=== PATIENT | female | born 1985 | race American Indian/Alaskan Native ===

== ENCOUNTER 2017-04-27 08:28 | Outpatient (CLI) | payer SELFPAY ==
[2017-04-27 09:05] LABS: Urine Drugs of Abuse Note Disclamer
[2017-04-27 09:29] LABS: Bacteria,Urine 1+ /HPF (Negative); Bilirubin,Urine NEG (Negative); Blood,Urine NEG (Negative); Ketones,Urine NEG (Negative); Leukocyte Esterase,Urine MOD (Negative); Mucus,Urine 1+ /HPF; Nitrite,Urine POS (Negative); Protein,Urine <15 mg/dL mg/dL (Negative); Urobilinogen,Urine < 2.0 mg/dL (<2.0)
[2017-04-27 10:21] VITALS: BP 108/63
--- NOTE | 2017-04-27 13:48 | Ultrasound Report ---
OB ULTRASOUND History vaginal bleeding during . Technique: Transabdominal ultrasound with Doppler interrogation. Gestation: Single Position: Breech Amniotic Fluid: Normal BAY = 16.0 cm Placenta: Anterior Placental Grade: 1 Heart Rate: 147 BPM Cervical length: 4.4 cm (Normal > 3 cm) NEUROANATOMY VISUALIZED: Choroid Plexus Cisterna Magnum Cerebellum Lateral Ventricle ANATOMY VISUALIZED: Stomach Kidneys Bladder Diaphragm 4 Chamber Heart Heart 3 Vessel Cord Abd. Cord Insert SPINE VISUALIZED: Longitudinal Transverse BPD: 6.7 cm = 26 w 6 d HC: 24.9 cm = 27 w 0 d AC: 20.7 cm = 25 w 2 d FL: 5.1 cm = 27 w 1 d HC/AC Ratio: 1.2 Cephalic Index: 76.1 Estimated Weight: 908 grams Clinical age = 27 w 0 d EDC: 07/27/17 US Gest. Age = 26 w 4 d EDC: 07/30/17 IMPRESSION: Viable, single intrauterine as described.
== END 2017-04-27 11:34 | disposition home or self-care (01) ==
LOC: TRG 08:28
PROVIDERS: ATTEND Obstetrics & Gynecology
DX: O32.1XX0 Maternal care for breech presentation, not applicable or unspecified (principal); O47.02 False labor before 37 completed weeks of gestation, second trimester; Z3A.27 27 weeks gestation of pregnancy
CPT/HCPCS: 59025; 76805; 80307; 81001

== ENCOUNTER 2017-07-05 13:58 | Outpatient (CLI) | payer SELFPAY ==
[2017-07-05 16:33] LABS: Alanine Aminotransferase 12 units/L (7-56); Albumin 3.8 g/dL (3.9-5)
[2017-07-05 16:57] LABS: Bilirubin,Direct < 0.2 mg/dL (0-0.2)
== END 2017-07-05 15:36 | disposition home or self-care (01) ==
LOC: TRG 13:58
PROVIDERS: ATTEND Obstetrics & Gynecology
DX: O47.03 False labor before 37 completed weeks of gestation, third trimester (principal); Z3A.36 36 weeks gestation of pregnancy
CPT/HCPCS: 59025; 80074

== ENCOUNTER 2017-07-24 22:14 | Outpatient (CLI) | payer OTHER ==
[2017-07-24 22:38] VITALS: BP 120/76
== END 2017-07-24 23:28 | disposition home or self-care (01) ==
LOC: TRG 22:14
PROVIDERS: ATTEND Obstetrics & Gynecology
DX: O42.92 Full-term premature rupture of membranes, unspecified as to length of time between rupture and onset of labor (principal); Z3A.39 39 weeks gestation of pregnancy
CPT/HCPCS: 59025

== ENCOUNTER 2017-08-05 16:41 | Inpatient (IN) | payer MEDICAID ==
--- NOTE | 2017-08-05 20:08 | Ultrasound Report ---
FINAL REPORT PROCEDURE: Ultrasound biophysical profile without nonstress test. TECHNIQUE: Sonographic evaluation for breathing, movement, tone, and amniotic fluid volume was performed. CPT 08376 HISTORY: Post dates, decreased movement, evaluate well-being. COMPARISON: No prior studies are available for comparison. FINDINGS: Amniotic fluid volume: 2. breathin. movement: 2. tone: 2. Score: 8 of 8. The fetus is in breech presentation. Cardiac activity is documented at 150 beats per minute. IMPRESSION: Normal biophysical profile.
[2017-08-05] MEDS ORDERED: POLYCILLIN/NS 2 GM/100 ML 2 GM/100 ML BAG IV ONE (20:46)
[2017-08-05] MEDS ORDERED: ePHEDrine SULFATE IV PRN (20:46)
[2017-08-05] MEDS ORDERED: BRETHINE SUB-Q PRN (20:46)
[2017-08-05] MEDS ORDERED: BRETHINE IVP PRN (20:46)
[2017-08-05] MEDS ORDERED: MINERAL OIL PO PRN (20:46)
[2017-08-05] MEDS ORDERED: XYLOCAINE 2% INFILTRATI ONE (20:46)
[2017-08-05] MEDS ORDERED: CERVIDIL VG ONE (20:46)
--- NOTE | 2017-08-05 20:56 | History and Physical Report ---
History of Present Illness Date of examination: 08/05/17 Chief complaint: postterm, history of macrosomia, no PNC History of present illness: Patient states she had PNC in [place], however she had not had any care since moving to [place]. course uncomplicated. EDC 07/27/17 based on US performed here at 27 weeks. No care records available. She presents tonight c/o NICHOLAS and decreased movement. BPP 10/10 with polyhydramnios. Will proceed with induction for post term with history of macrosomia and 42weeks Past History Past Medical History: no pertinent history Past Surgical History: no surgical history [employer] History: abnormal PAP smear. denies: chlamydia, gonorrhea, hepatitis C, herpes, HIV, syphilis, trichomonas Social history: no significant social history - Obstetrical History Expected Date of Delivery: 07/27/17 Actual Gestation: 41 Week(s) 2 Day(s) : 3 Hx # Term Pregnancies: 1 Spontaneous Abortions: 1 Number of Living Children: 1 #1 Infant Gender: Female year: Birthweight: 4.309 kg Method of Delivery: Vaginal Gestational age at delivery: 42 Complications: none (she refused induction earlier in the b/c she was scared to be induced) Medications and Allergies Allergies Allergy/AdvReac Type Severity Reaction Status Date / Time No Known Allergies Allergy Unverified 04/27/17 08:36 Home Medications Medication Instructions Recorded Confirmed Last Taken Type Vit Calc,Iron,Folic 1 tab PO DAILY 04/27/17 08/05/17 07/24/17 History [ Vitamins] Active Meds: Active Medications Dinoprostone (Cervidil) 10 mg VG ONCE ONE Stop: 08/05/17 20:47 Ephedrine Sulfate (Ephedrine Sulfate) 10 mg IV Q2M PRN PRN Reason: Hypotension Ampicillin Sodium (Polycillin/Ns 2 Gm/100 Ml) 2 gm in 100 mls @ 100 mls/hr IV ONCE ONE; Protocol Stop: 08/05/17 21:45 Ampicillin Sodium (Ampicillin/Ns 1 Gm/50 Ml) 1 gm in 50 mls @ 100 mls/hr IV Q4HR LUCIE; Protocol Parenteral Electrolytes (Normosol-R Ph 7.4) 1,000 mls @ 125 mls/hr IV DIRECT LUCIE Oxytocin/Sodium Chloride (Pitocin/Ns 20 Unit/1000ml Drip) 20 units in 1,000 mls @ 125 mls/hr IV DIRECT LUCIE Lidocaine (Xylocaine 2%) 20 ml INFILTRATI ONCE ONE Stop: 08/05/17 20:47 Mineral Oil (Mineral Oil) 30 ml PO QHS PRN PRN Reason: Constipation Terbutaline Sulfate (Brethine) 0.25 mg SUB-Q ONCE PRN PRN Reason: Hyperstimulation/Hypertonicity Terbutaline Sulfate (Brethine) 0.25 mg IVP ONCE PRN PRN Reason: Hyperstimulation/Hypertonicity - Vital Signs Vital signs: Vital Signs Pulse BP 94 H 123/79 08/05/17 17:13 08/05/17 17:13 Temp Pulse Resp BP Pulse Ox 78 118/70 08/05/17 20:20 08/05/17 20:20 - Physical Exam Breasts: Positive: deferred Cardiovascular: Regular rate Lungs: Positive: Clear to auscultation Abdomen: Positive: normal appearance - Obstetrical FHR: category 1 Uterine Contraction Monitor Mode: External Cervical Dilatation: 0.5 (per RN) Cervical Effacement Percentage: 50 station: -3 cephalic by US Uterine Contraction Pattern: Absent Results All other labs normal. Ultrasound: report reviewed Assessment and Plan - Patient Problems (1) 41 weeks gestation of Current Visit: Yes Status: Acute Plan to address problem: Will proceed with induction, questions answered, she voiced understanding and agrees with plan of care (2) No care in current Current Visit: Yes Status: Acute (3) History of macrosomia in in prior , currently Current Visit: Yes Status: Acute
[2017-08-05] MEDS ORDERED: PITOCin/NS 20 UNIT/1000ML DRIP 20 UNITS/1,000 ML BAG IV SCH (21:00)
--- NOTE | 2017-08-05 21:48 | Ultrasound Report ---
FINAL REPORT PROCEDURE: Limited obstetrical ultrasound. TECHNIQUE: Imaging was done to determine the amniotic fluid index. HISTORY: Post dates, well-being, decreased movement. COMPARISON: No prior studies are available for comparison. FINDINGS: The amniotic fluid index measures 24.5 centimeters. The heart rate is documented at 150 beats per minute. IMPRESSION: 24.5 centimeter amniotic fluid index.
[2017-08-05] MEDS: NORMOSOL-R PH 7.4 1,000 ML IV SCH (21:57)
[2017-08-06] MEDS: NORMOSOL-R PH 7.4 1,000 ML IV SCH ×2 (00:33→13:46)
--- NOTE | 2017-08-06 07:52 | Progress Note ---
Assessment and Plan patient resting w/o complaints. pt reports NICHOLAS has resolved and denies hx of headaches or migraines. VSSAF. SVE ft/thick/oop. Cervidil to be removed @ 1000, if CAT 1 tracing pt may shower and ambulate until lunch. Pitocin to be started @ 1200. Plan reviewed with pt and rn. All questions addressed. city secretary will attempt to get records from OB provider in [place]. Pt states she has been in the [place] area x 1 month but had regular care prior to moving. - Patient Problems (1) 41 weeks gestation of Current Visit: Yes Status: Acute (2) History of macrosomia in infant in prior , currently Current Visit: Yes Status: Acute Subjective - Subjective Date of service: 08/06/17 Principal diagnosis: IUP @ 41+3, limited care Patient reports: no new complaints Objective - Vital Signs Vital Signs: Vital Signs - 12hr 08/05/17 08/06/17 20:20 02:12 Pulse Rate 78 79 Blood Pressure 118/70 101/58 - Exam Breasts: normal Cardiovascular: Regular rate Lungs: Clear to auscultation, Normal air movement Abdomen: Present: normal appearance, soft Uterus: Present: normal FHR: auscultation normal, category 2 Uterine Contraction Monitor Mode: External Cervical Dilatation: 0.5 Cervical Effacement Percentage: 30 (firm) station: -3 Uterine Contraction Pattern: Irregular Uterine Tone Measurement Phase: Resting Extremities: normal Deep Tendon Reflex Grade: Normal +2 - Labs Labs: Laboratory Results - last 24 hr 08/05/17 21:05 Blood Type A POSITIVE Antibody Screen Negative
[2017-08-06 08:13] LABS: Rubella IgG Antibody Immune (Immune)
--- NOTE | 2017-08-06 08:35 | Event Note ---
Date: 08/06/17 (presentation) preliminary u/s report has cephalic presentation noted. radiology report says breech and images of u/s have transverse head maternal left noted. stat repeat u /s for confirmation of presentation ordered. unable to feel presenting part during SVE.
--- NOTE | 2017-08-06 09:13 | Ultrasound Report ---
LIMITED OB ULTRASOUND: Presentation. Gestation: Michael Position: Cephalic Heart Rate: 141 BPM
--- NOTE | 2017-08-06 10:17 | Progress Note ---
Assessment and Plan - Patient Problems (1) 41 weeks gestation of Current Visit: Yes Status: Acute (2) History of macrosomia in in prior , currently Current Visit: Yes Status: Acute (3) No care in current Current Visit: Yes Status: Acute Qualifiers: Trimester: third trimester Qualified Code(s): O09.33 - Supervision of with insufficient care, third trimester Plan to address problem: will con't IOL at this time. Allow pericare and for pt to eat and then proceed with pitocin at this time. Subjective - Subjective Date of service: 08/06/17 Principal diagnosis: IUP @ 41+3, limited care Interval history: Pt doing well. Pain is well controlled at this time. Pt vtx by sono this am and feels vtx by my exam but presenting part is very high. Patient reports: no new complaints Objective - Vital Signs Vital Signs: Vital Signs - 12hr 08/06/17 02:12 Pulse Rate 79 Blood Pressure 101/58 - Exam FHR: category 1 Cervical Dilatation: 1.5 Cervical Effacement Percentage: 50 station: -3 - Labs Labs: Laboratory Results - last 24 hr 08/05/17 08/06/17 08/06/17 21:05 07:17 07:17 Sickle Cell Screen Negative HIV 1&2 Antibody Rapid HIV P24 Antigen Rubella IgG Antibody Immune Blood Type A POSITIVE Antibody Screen Negative 08/06/17 07:17 Sickle Cell Screen HIV 1&2 Antibody Rapid Non react HIV P24 Antigen Non react Rubella IgG Antibody Blood Type Antibody Screen
[2017-08-06 11:25] LABS: Hepatitis C Virus Antibody Non-Reactive (NonReactive)
[2017-08-06] MEDS: PITOCin/NS 30 UNIT/500ML 30 UNITS/500 ML BAG IV SCH ×6 (12:30→15:41)
[2017-08-06 17:43] LABS: Amphetamine Screen,Urine PRESUMPTIVE NEGATIVE; Benzodiazepines Screen,Urine PRESUMPTIVE NEGATIVE; Cannabinoid Screen,Urine PRESUMPTIVE NEGATIVE; Cocaine Screen,Urine PRESUMPTIVE NEGATIVE; Methadone Screen,Urine PRESUMPTIVE NEGATIVE; Opiate Screen,Urine PRESUMPTIVE NEGATIVE
--- NOTE | 2017-08-06 17:54 | Progress Note ---
Assessment and Plan no change in SVE since last exam, pitocin infusing @ 24mU with regular ctx. Plan discussed to d/c pitocin, allow dinner and ambulation with cat [address] repeat cervidil tonight for additional cervical ripening. patient denies needing pain medication at this time. All questions addressed, patient verbalized understanding. Dr. Ram aware of status and plan of care. - Patient Problems (1) 41 weeks gestation of Current Visit: Yes Status: Acute (2) History of macrosomia in in prior , currently Current Visit: Yes Status: Acute (3) No care in current Current Visit: Yes Status: Acute Qualifiers: Trimester: third trimester Qualified Code(s): O09.33 - Supervision of with insufficient care, third trimester Subjective - Subjective Date of service: 08/06/17 Principal diagnosis: IUP @ 41+3, no care Patient reports: new complaints (back pain), movement normal, no loss of fluid, no vaginal bleeding Objective - Vital Signs Vital Signs: Vital Signs - 12hr 08/06/17 08/06/17 08/06/17 12:15 12:25 12:26 Temperature 99.0 F Pulse Rate 87 96 H Respiratory 18 Rate Blood Pressure 110/70 O2 Sat by Pulse 100 Oximetry 08/06/17 08/06/17 08/06/17 12:31 12:36 12:40 Temperature Pulse Rate 91 H 83 90 Respiratory Rate Blood Pressure 107/67 O2 Sat by Pulse 98 98 Oximetry 08/06/17 08/06/17 08/06/17 12:41 12:46 12:51 Temperature Pulse Rate 101 H 95 H 99 H Respiratory Rate Blood Pressure O2 Sat by Pulse 98 99 99 Oximetry 08/06/17 08/06/17 08/06/17 12:56 12:59 13:01 Temperature Pulse Rate 94 H 99 H 88 Respiratory Rate Blood Pressure 130/75 O2 Sat by Pulse 98 84 100 Oximetry 08/06/17 08/06/17 08/06/17 13:06 13:08 13:11 Temperature Pulse Rate 94 H 89 104 H Respiratory Rate Blood Pressure 128/71 O2 Sat by Pulse 99 90 100 Oximetry 08/06/17 08/06/17 08/06/17 13:16 13:21 13:25 Temperature Pulse Rate 97 H 90 90 Respiratory Rate Blood Pressure 117/70 O2 Sat by Pulse 99 99 Oximetry 08/06/17 08/06/17 08/06/17 13:26 13:31 13:36 Temperature Pulse Rate 85 85 81 Respiratory Rate Blood Pressure O2 Sat by Pulse 98 99 98 Oximetry 08/06/17 08/06/17 08/06/17 13:41 13:46 13:51 Temperature Pulse Rate 88 89 83 Respiratory Rate Blood Pressure 113/70 O2 Sat by Pulse 98 100 98 Oximetry 08/06/17 08/06/17 08/06/17 13:54 13:56 14:01 Temperature Pulse Rate 89 86 83 Respiratory Rate Blood Pressure 117/70 O2 Sat by Pulse 99 100 Oximetry 08/06/17 08/06/17 08/06/17 14:06 14:10 14:11 Temperature Pulse Rate 86 98 H 86 Respiratory Rate Blood Pressure 105/76 O2 Sat by Pulse 99 99 Oximetry 08/06/17 08/06/17 08/06/17 14:16 14:21 14:25 Temperature Pulse Rate 87 88 86 Respiratory Rate Blood Pressure 121/78 O2 Sat by Pulse 99 99 Oximetry 08/06/17 08/06/17 08/06/17 14:26 14:31 14:41 Temperature Pulse Rate 95 H 81 83 Respiratory Rate Blood Pressure 115/70 O2 Sat by Pulse 99 97 Oximetry 08/06/17 08/06/17 08/06/17 14:54 15:10 15:25 Temperature Pulse Rate 92 H 86 85 Respiratory Rate Blood Pressure 112/71 119/73 121/79 O2 Sat by Pulse Oximetry 08/06/17 08/06/17 08/06/17 15:39 15:54 16:10 Temperature Pulse Rate 88 87 82 Respiratory Rate Blood Pressure 111/73 115/73 116/73 O2 Sat by Pulse Oximetry 08/06/17 08/06/17 08/06/17 16:25 16:40 17:09 Temperature Pulse Rate 88 83 75 Respiratory Rate Blood Pressure 113/71 118/70 114/67 O2 Sat by Pulse Oximetry 08/06/17 08/06/17 17:25 17:41 Temperature Pulse Rate 76 75 Respiratory Rate Blood Pressure 117/77 119/69 O2 Sat by Pulse Oximetry - Exam Breasts: normal Cardiovascular: Regular rate Lungs: Clear to auscultation, Normal air movement Abdomen: Present: normal appearance, soft Vulva: both: normal Uterus: Present: normal FHR: auscultation normal, category 1 Uterine Contraction Monitor Mode: External Cervical Dilatation: 1.5 (posterior, head balotable) Cervical Effacement Percentage: 50 station: -3 Uterine Contraction Frequency (min): 2-4 Uterine Contraction Duration: 60 Uterine Contraction Pattern: Regular Uterine Tone Measurement Phase: Contraction Uterine Contraction Intensity: Moderate Extremities: normal Deep Tendon Reflex Grade: Normal +2 - Labs Labs: Laboratory Results - last 24 hr 08/05/17 08/05/17 08/06/17 21:05 21:05 07:17 Sickle Cell Screen Negative Urine Opiates Screen Urine Methadone Screen Ur Barbiturates Screen Ur Phencyclidine Scrn Ur Amphetamines Screen U Benzodiazepines Scrn Urine Cocaine Screen U Marijuana (THC) Screen Drugs of Abuse Note RPR Nonreactive Hep Bs Antigen Hepatitis C Antibody HIV 1&2 Antibody Rapid HIV P24 Antigen Rubella IgG Antibody Blood Type A POSITIVE Antibody Screen Negative 08/06/17 08/06/17 08/06/17 07:17 07:17 07:17 Sickle Cell Screen Urine Opiates Screen Urine Methadone Screen Ur Barbiturates Screen Ur Phencyclidine Scrn Ur Amphetamines Screen U Benzodiazepines Scrn Urine Cocaine Screen U Marijuana (THC) Screen Drugs of Abuse Note RPR Hep Bs Antigen Non-reactive Hepatitis C Antibody Non-reactive HIV 1&2 Antibody Rapid Non react HIV P24 Antigen Non react Rubella IgG Antibody Immune Blood Type Antibody Screen 08/06/17 Unknown Sickle Cell Screen Urine Opiates Screen Presumptive negative Urine Methadone Screen Presumptive negative Ur Barbiturates Screen Presumptive negative Ur Phencyclidine Scrn Presumptive negative Ur Amphetamines Screen Presumptive negative U Benzodiazepines Scrn Presumptive negative Urine Cocaine Screen Presumptive negative U Marijuana (THC) Screen Presumptive negative Drugs of Abuse Note Disclamer RPR Hep Bs Antigen Hepatitis C Antibody HIV 1&2 Antibody Rapid HIV P24 Antigen Rubella IgG Antibody Blood Type Antibody Screen
[2017-08-06] MEDS ORDERED: AMBIEN PO PRN (18:57)
[2017-08-06] MEDS ORDERED: CERVIDIL VG ONE (20:30)
--- NOTE | 2017-08-07 08:30 | Progress Note ---
Assessment and Plan - Patient Problems (1) 41 weeks gestation of Current Visit: Yes Status: Acute Plan to address problem: Once cephalic presentation confirmed will proceed with pitocin (2) No care in current Current Visit: Yes Status: Acute Qualifiers: Trimester: third trimester Qualified Code(s): O09.33 - Supervision of with insufficient care, third trimester (3) History of macrosomia in infant in prior , currently Current Visit: Yes Status: Acute Subjective - Subjective Date of service: 08/07/17 Principal diagnosis: IUP @ 41+4, no care Patient reports: new complaints (back pain), movement normal, no loss of fluid, no vaginal bleeding Objective - Vital Signs Vital Signs: Vital Signs - 12hr 08/06/17 08/06/17 08/06/17 20:41 20:45 20:48 Temperature 99.1 F Pulse Rate 95 H 100 H 98 H Respiratory 18 Rate Blood Pressure 124/76 Blood Pressure 124/76 [Left] O2 Sat by Pulse 98 98 Oximetry 08/06/17 08/06/17 08/06/17 20:50 20:55 21:00 Temperature Pulse Rate 95 H 99 H 101 H Respiratory Rate Blood Pressure Blood Pressure [Left] O2 Sat by Pulse 97 98 98 Oximetry 08/06/17 08/06/17 08/06/17 21:05 21:10 21:15 Temperature Pulse Rate 98 H 94 H 102 H Respiratory Rate Blood Pressure Blood Pressure [Left] O2 Sat by Pulse 98 98 99 Oximetry 08/06/17 08/06/17 08/06/17 21:20 21:25 21:30 Temperature Pulse Rate 90 103 H 89 Respiratory Rate Blood Pressure Blood Pressure [Left] O2 Sat by Pulse 97 98 98 Oximetry 08/06/17 08/06/17 08/06/17 21:35 21:40 21:45 Temperature Pulse Rate 95 H 93 H 91 H Respiratory Rate Blood Pressure Blood Pressure [Left] O2 Sat by Pulse 99 99 99 Oximetry 08/06/17 08/06/17 08/06/17 21:50 21:55 22:00 Temperature Pulse Rate 81 90 87 Respiratory Rate Blood Pressure Blood Pressure [Left] O2 Sat by Pulse 99 99 99 Oximetry 08/06/17 08/06/17 08/06/17 22:05 22:10 22:15 Temperature Pulse Rate 80 82 86 Respiratory Rate Blood Pressure Blood Pressure [Left] O2 Sat by Pulse 99 100 99 Oximetry 08/06/17 08/06/17 08/06/17 22:20 22:25 22:30 Temperature Pulse Rate 75 75 84 Respiratory Rate Blood Pressure Blood Pressure [Left] O2 Sat by Pulse 99 99 99 Oximetry 08/06/17 08/06/17 08/06/17 22:35 22:40 22:45 Temperature Pulse Rate 86 82 77 Respiratory Rate Blood Pressure Blood Pressure [Left] O2 Sat by Pulse 99 99 98 Oximetry 08/06/17 08/06/17 08/06/17 22:50 22:55 23:00 Temperature Pulse Rate 93 H 77 78 Respiratory Rate Blood Pressure Blood Pressure [Left] O2 Sat by Pulse 98 99 100 Oximetry 08/06/17 08/06/17 08/06/17 23:05 23:10 23:15 Temperature Pulse Rate 77 97 H 96 H Respiratory Rate Blood Pressure Blood Pressure [Left] O2 Sat by Pulse 100 99 99 Oximetry 08/06/17 08/06/17 08/06/17 23:20 23:25 23:30 Temperature Pulse Rate 90 79 84 Respiratory Rate Blood Pressure Blood Pressure [Left] O2 Sat by Pulse 99 98 99 Oximetry 08/06/17 08/06/17 08/06/17 23:35 23:40 23:43 Temperature Pulse Rate 84 88 89 Respiratory Rate Blood Pressure Blood Pressure [Left] O2 Sat by Pulse 99 97 89 Oximetry 08/07/17 08/07/17 08/07/17 01:11 01:16 01:21 Temperature Pulse Rate 85 93 H 97 H Respiratory Rate Blood Pressure Blood Pressure [Left] O2 Sat by Pulse 95 96 96 Oximetry 08/07/17 08/07/17 08/07/17 01:26 01:31 01:36 Temperature Pulse Rate 97 H 104 H 99 H Respiratory Rate Blood Pressure Blood Pressure [Left] O2 Sat by Pulse 96 96 96 Oximetry 08/07/17 08/07/17 08/07/17 01:41 01:46 01:51 Temperature Pulse Rate 101 H 95 H 95 H Respiratory Rate Blood Pressure Blood Pressure [Left] O2 Sat by Pulse 96 96 97 Oximetry 08/07/17 08/07/17 08/07/17 01:56 02:01 02:06 Temperature Pulse Rate 93 H 95 H 98 H Respiratory Rate Blood Pressure Blood Pressure [Left] O2 Sat by Pulse 97 97 97 Oximetry 08/07/17 08/07/17 08/07/17 02:11 02:16 02:21 Temperature Pulse Rate 94 H 90 102 H Respiratory Rate Blood Pressure Blood Pressure [Left] O2 Sat by Pulse 97 96 97 Oximetry 08/07/17 08/07/17 08/07/17 02:26 02:31 02:36 Temperature Pulse Rate 95 H 94 H 96 H Respiratory Rate Blood Pressure Blood Pressure [Left] O2 Sat by Pulse 97 97 97 Oximetry 08/07/17 08/07/17 08/07/17 02:41 02:46 02:51 Temperature Pulse Rate 101 H 98 H 98 H Respiratory Rate Blood Pressure Blood Pressure [Left] O2 Sat by Pulse 97 97 97 Oximetry 08/07/17 08/07/17 08/07/17 02:56 03:01 03:06 Temperature Pulse Rate 97 H 98 H 82 Respiratory Rate Blood Pressure Blood Pressure [Left] O2 Sat by Pulse 97 96 96 Oximetry 08/07/17 08/07/17 08/07/17 03:11 03:12 03:16 Temperature Pulse Rate 96 H 104 H 92 H Respiratory Rate Blood Pressure Blood Pressure [Left] O2 Sat by Pulse 96 93 95 Oximetry 08/07/17 08/07/17 08/07/17 03:18 03:21 03:24 Temperature Pulse Rate 99 H 91 H 93 H Respiratory Rate Blood Pressure Blood Pressure [Left] O2 Sat by Pulse 94 95 94 Oximetry 08/07/17 08/07/17 08/07/17 03:26 03:31 03:36 Temperature Pulse Rate 93 H 99 H 86 Respiratory Rate Blood Pressure Blood Pressure [Left] O2 Sat by Pulse 94 96 94 Oximetry 08/07/17 08/07/17 08/07/17 03:41 03:47 03:51 Temperature Pulse Rate 93 H 88 90 Respiratory Rate Blood Pressure Blood Pressure [Left] O2 Sat by Pulse 94 94 94 Oximetry 08/07/17 08/07/17 08/07/17 03:56 03:59 04:01 Temperature Pulse Rate 94 H 93 H 93 H Respiratory Rate Blood Pressure Blood Pressure [Left] O2 Sat by Pulse 94 94 94 Oximetry 08/07/17 08/07/17 08/07/17 04:07 04:11 04:14 Temperature Pulse Rate 93 H 94 H 92 H Respiratory Rate Blood Pressure Blood Pressure [Left] O2 Sat by Pulse 94 94 94 Oximetry 08/07/17 08/07/17 08/07/17 04:16 04:22 04:27 Temperature Pulse Rate 92 H 91 H 91 H Respiratory Rate Blood Pressure Blood Pressure [Left] O2 Sat by Pulse 95 94 95 Oximetry 08/07/17 08/07/17 08/07/17 04:28 04:32 04:36 Temperature Pulse Rate 88 96 H 92 H Respiratory Rate Blood Pressure Blood Pressure [Left] O2 Sat by Pulse 94 94 97 Oximetry 08/07/17 08/07/17 08/07/17 04:38 04:41 04:44 Temperature Pulse Rate 84 86 83 Respiratory Rate Blood Pressure Blood Pressure [Left] O2 Sat by Pulse 94 94 94 Oximetry 08/07/17 08/07/17 08/07/17 04:47 04:52 04:56 Temperature Pulse Rate 84 89 86 Respiratory Rate Blood Pressure Blood Pressure [Left] O2 Sat by Pulse 94 94 94 Oximetry 08/07/17 08/07/17 08/07/17 04:58 05:02 05:07 Temperature Pulse Rate 91 H 86 89 Respiratory Rate Blood Pressure Blood Pressure [Left] O2 Sat by Pulse 94 97 97 Oximetry 08/07/17 08/07/17 08/07/17 05:12 05:17 05:22 Temperature Pulse Rate 98 H 90 102 H Respiratory Rate Blood Pressure Blood Pressure [Left] O2 Sat by Pulse 96 95 96 Oximetry 08/07/17 08/07/17 08/07/17 05:27 05:32 05:37 Temperature Pulse Rate 103 H 95 H 93 H Respiratory Rate Blood Pressure Blood Pressure [Left] O2 Sat by Pulse 96 96 96 Oximetry 08/07/17 08/07/17 08/07/17 05:41 05:42 05:47 Temperature Pulse Rate 78 80 86 Respiratory Rate Blood Pressure Blood Pressure [Left] O2 Sat by Pulse 94 94 94 Oximetry 08/07/17 08/07/17 08/07/17 05:48 05:52 05:57 Temperature Pulse Rate 86 89 85 Respiratory Rate Blood Pressure Blood Pressure [Left] O2 Sat by Pulse 94 93 93 Oximetry 08/07/17 08/07/17 08/07/17 06:02 06:07 06:12 Temperature Pulse Rate 89 82 90 Respiratory Rate Blood Pressure Blood Pressure [Left] O2 Sat by Pulse 93 94 93 Oximetry 08/07/17 08/07/17 08/07/17 06:17 06:22 06:27 Temperature Pulse Rate 88 85 85 Respiratory Rate Blood Pressure Blood Pressure [Left] O2 Sat by Pulse 93 93 94 Oximetry 08/07/17 08/07/17 08/07/17 06:28 06:32 06:35 Temperature Pulse Rate 89 81 84 Respiratory Rate Blood Pressure Blood Pressure [Left] O2 Sat by Pulse 94 94 94 Oximetry 08/07/17 08/07/17 08/07/17 06:37 06:42 06:45 Temperature Pulse Rate 92 H 93 H 80 Respiratory Rate Blood Pressure Blood Pressure [Left] O2 Sat by Pulse 96 96 94 Oximetry 08/07/17 08/07/17 08/07/17 06:47 06:52 06:57 Temperature Pulse Rate 82 85 91 H Respiratory Rate Blood Pressure Blood Pressure [Left] O2 Sat by Pulse 95 96 97 Oximetry 08/07/17 08/07/17 08/07/17 07:02 07:07 07:11 Temperature Pulse Rate 88 93 H 79 Respiratory Rate Blood Pressure Blood Pressure [Left] O2 Sat by Pulse 97 97 99 Oximetry 08/07/17 08/07/17 08/07/17 07:14 07:17 07:22 Temperature 97.4 F L Pulse Rate 98 H 98 H 90 Respiratory Rate Blood Pressure 94/52 Blood Pressure 94/52 [Left] O2 Sat by Pulse 98 97 Oximetry 08/07/17 08/07/17 08/07/17 07:27 07:32 07:37 Temperature Pulse Rate 93 H 96 H 96 H Respiratory Rate Blood Pressure Blood Pressure [Left] O2 Sat by Pulse 96 98 98 Oximetry 08/07/17 08/07/17 08/07/17 07:42 07:47 07:52 Temperature Pulse Rate 107 H 93 H 93 H Respiratory Rate Blood Pressure Blood Pressure [Left] O2 Sat by Pulse 99 100 99 Oximetry 08/07/17 08/07/17 08/07/17 07:57 08:02 08:07 Temperature Pulse Rate 94 H 80 88 Respiratory Rate Blood Pressure Blood Pressure [Left] O2 Sat by Pulse 100 98 100 Oximetry 08/07/17 08/07/17 08/07/17 08:12 08:17 08:22 Temperature Pulse Rate 89 96 H 78 Respiratory Rate Blood Pressure Blood Pressure [Left] O2 Sat by Pulse 98 99 99 Oximetry 08/07/17 08:27 Temperature Pulse Rate 92 H Respiratory Rate Blood Pressure Blood Pressure [Left] O2 Sat by Pulse 98 Oximetry - Exam Breasts: deferred Cardiovascular: Regular rate Lungs: Normal air movement Abdomen: Present: normal appearance, soft Vulva: both: normal FHR: category 1 Uterine Contraction Monitor Mode: Internal (AROM, light meconium, IUPC placed) Cervical Dilatation: 1 Cervical Effacement Percentage: 30 station: -3 Uterine Contraction Pattern: Irregular Extremities: normal - Labs Labs: Laboratory Results - last 24 hr 08/05/17 08/06/17 08/06/17 21:05 07:17 07:17 Urine Opiates Screen Urine Methadone Screen Ur Barbiturates Screen Ur Phencyclidine Scrn Ur Amphetamines Screen U Benzodiazepines Scrn Urine Cocaine Screen U Marijuana (THC) Screen Drugs of Abuse Note RPR Nonreactive Hep Bs Antigen Non-reactive Hepatitis C Antibody Non-reactive HIV 1&2 Antibody Rapid HIV P24 Antigen 08/06/17 08/06/17 07:17 Unknown Urine Opiates Screen Presumptive negative Urine Methadone Screen Presumptive negative Ur Barbiturates Screen Presumptive negative Ur Phencyclidine Scrn Presumptive negative Ur Amphetamines Screen Presumptive negative U Benzodiazepines Scrn Presumptive negative Urine Cocaine Screen Presumptive negative U Marijuana (THC) Screen Presumptive negative Drugs of Abuse Note Disclamer RPR Hep Bs Antigen Hepatitis C Antibody HIV 1&2 Antibody Rapid Non react HIV P24 Antigen Non react
[2017-08-07] MEDS ORDERED: POLYCILLIN/NS 2 GM/100 ML 2 GM/100 ML BAG IV ONE (09:00)
[2017-08-07] MEDS: PITOCin/NS 30 UNIT/500ML 30 UNITS/500 ML BAG IV SCH ×6 (09:30→17:41)
--- NOTE | 2017-08-07 10:03 | Ultrasound Report ---
OB ULTRASOUND LIMITED: 08/07/17 CLINICAL: Check position. FINDINGS: Gestation: Michael Position: Cephalic. Heart Rate: 136 BPM IMPRESSION: Single live intrauterine fetus in cephalic position at 41 weeks, 3 daysbased on clinical dating.
[2017-08-07] MEDS: NORMOSOL-R PH 7.4 1,000 ML IV SCH ×3 (10:21→17:40)
[2017-08-07] MEDS ORDERED: SUBLIMAZE IV ONE ×2 (11:43→12:00)
[2017-08-07] MEDS: AMPICILLIN/NS 1 GM/50 ML 1 GM/50 ML BAG IV SCH ×2 (13:11→17:40)
[2017-08-07 14:01] LABS: Hematocrit 38.9 % (30.3-42.9); Hemoglobin 12.6 gm/dl (10.1-14.3); Mean Corpuscular HGB Conc 32 % (30-34); Mean Corpuscular Hemoglobin 29 pg (28-32); Mean Corpuscular Volume 91 fl (79-97); Platelet Count 186 K/mm3 (140-440); Red Blood Count 4.29 M/mm3 (3.65-5.03); Red Cell Distribution Width 13.9 % (13.2-15.2)
--- NOTE | 2017-08-07 14:34 | Anesthesia Consultation ---
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
[2017-08-07] MEDS ORDERED: NARCAN 2 MG/2 ML IV PRN (14:47)
[2017-08-07] MEDS ORDERED: ePHEDrine SULFATE IV PRN (14:47)
--- NOTE | 2017-08-07 15:05 | Progress Note ---
Assessment and Plan - Patient Problems (1) 41 weeks gestation of Current Visit: Yes Status: Acute (2) No care in current Current Visit: Yes Status: Acute Qualifiers: Trimester: third trimester Qualified Code(s): O09.33 - Supervision of with insufficient care, third trimester Plan to address problem: Anticipate (3) History of macrosomia in infant in prior , currently Current Visit: Yes Status: Acute Subjective - Subjective Date of service: 08/07/17 Principal diagnosis: IUP @ 41+4, no care Interval history: Patient states she had PNC in [place], however she had not had any care since moving to [place]. course uncomplicated. EDC 07/27/17 based on US performed here at 27 weeks. No care records available. She presents tonight c/o NICHOLAS and decreased movement. BPP 10/10 with polyhydramnios. Will proceed with induction for post term with history of macrosomia and 42weeks Patient reports: new complaints (back pain), movement normal, no loss of fluid, no vaginal bleeding Objective - Vital Signs Vital Signs: Vital Signs - 12hr 08/07/17 08/07/17 08/07/17 03:06 03:11 03:12 Temperature Pulse Rate 82 96 H 104 H Respiratory Rate Blood Pressure Blood Pressure [Left] O2 Sat by Pulse 96 96 93 Oximetry 08/07/17 08/07/17 08/07/17 03:16 03:18 03:21 Temperature Pulse Rate 92 H 99 H 91 H Respiratory Rate Blood Pressure Blood Pressure [Left] O2 Sat by Pulse 95 94 95 Oximetry 08/07/17 08/07/17 08/07/17 03:24 03:26 03:31 Temperature Pulse Rate 93 H 93 H 99 H Respiratory Rate Blood Pressure Blood Pressure [Left] O2 Sat by Pulse 94 94 96 Oximetry 08/07/17 08/07/17 08/07/17 03:36 03:41 03:47 Temperature Pulse Rate 86 93 H 88 Respiratory Rate Blood Pressure Blood Pressure [Left] O2 Sat by Pulse 94 94 94 Oximetry 08/07/17 08/07/17 08/07/17 03:51 03:56 03:59 Temperature Pulse Rate 90 94 H 93 H Respiratory Rate Blood Pressure Blood Pressure [Left] O2 Sat by Pulse 94 94 94 Oximetry 0308/07/17 08/07/17 04:01 04:07 04:11 Temperature Pulse Rate 93 H 93 H 94 H Respiratory Rate Blood Pressure Blood Pressure [Left] O2 Sat by Pulse 94 94 94 Oximetry 08/07/17 08/07/17 08/07/17 04:14 04:16 04:22 Temperature Pulse Rate 92 H 92 H 91 H Respiratory Rate Blood Pressure Blood Pressure [Left] O2 Sat by Pulse 94 95 94 Oximetry 08/07/17 08/07/17 08/07/17 04:27 04:28 04:32 Temperature Pulse Rate 91 H 88 96 H Respiratory Rate Blood Pressure Blood Pressure [Left] O2 Sat by Pulse 95 94 94 Oximetry 08/07/17 08/07/17 08/07/17 04:36 04:38 04:41 Temperature Pulse Rate 92 H 84 86 Respiratory Rate Blood Pressure Blood Pressure [Left] O2 Sat by Pulse 97 94 94 Oximetry 08/07/17 08/07/17 08/07/17 04:44 04:47 04:52 Temperature Pulse Rate 83 84 89 Respiratory Rate Blood Pressure Blood Pressure [Left] O2 Sat by Pulse 94 94 94 Oximetry 08/07/17 08/07/17 08/07/17 04:56 04:58 05:02 Temperature Pulse Rate 86 91 H 86 Respiratory Rate Blood Pressure Blood Pressure [Left] O2 Sat by Pulse 94 94 97 Oximetry 08/07/17 08/07/17 08/07/17 05:07 05:12 05:17 Temperature Pulse Rate 89 98 H 90 Respiratory Rate Blood Pressure Blood Pressure [Left] O2 Sat by Pulse 97 96 95 Oximetry 08/07/17 08/07/17 08/07/17 05:22 05:27 05:32 Temperature Pulse Rate 102 H 103 H 95 H Respiratory Rate Blood Pressure Blood Pressure [Left] O2 Sat by Pulse 96 96 96 Oximetry 08/07/17 08/07/17 08/07/17 05:37 05:41 05:42 Temperature Pulse Rate 93 H 78 80 Respiratory Rate Blood Pressure Blood Pressure [Left] O2 Sat by Pulse 96 94 94 Oximetry 08/07/17 08/07/17 08/07/17 05:47 05:48 05:52 Temperature Pulse Rate 86 86 89 Respiratory Rate Blood Pressure Blood Pressure [Left] O2 Sat by Pulse 94 94 93 Oximetry 08/07/17 08/07/17 08/07/17 05:57 06:02 06:07 Temperature Pulse Rate 85 89 82 Respiratory Rate Blood Pressure Blood Pressure [Left] O2 Sat by Pulse 93 93 94 Oximetry 08/07/17 08/07/17 08/07/17 06:12 06:17 06:22 Temperature Pulse Rate 90 88 85 Respiratory Rate Blood Pressure Blood Pressure [Left] O2 Sat by Pulse 93 93 93 Oximetry 08/07/17 08/07/17 08/07/17 06:27 06:28 06:32 Temperature Pulse Rate 85 89 81 Respiratory Rate Blood Pressure Blood Pressure [Left] O2 Sat by Pulse 94 94 94 Oximetry 08/07/17 08/07/17 08/07/17 06:35 06:37 06:42 Temperature Pulse Rate 84 92 H 93 H Respiratory Rate Blood Pressure Blood Pressure [Left] O2 Sat by Pulse 94 96 96 Oximetry 08/07/17 08/07/17 08/07/17 06:45 06:47 06:52 Temperature Pulse Rate 80 82 85 Respiratory Rate Blood Pressure Blood Pressure [Left] O2 Sat by Pulse 94 95 96 Oximetry 08/07/17 08/07/17 08/07/17 06:57 07:02 07:07 Temperature Pulse Rate 91 H 88 93 H Respiratory Rate Blood Pressure Blood Pressure [Left] O2 Sat by Pulse 97 97 97 Oximetry 08/07/17 08/07/17 08/07/17 07:11 07:14 07:17 Temperature 97.4 F L Pulse Rate 79 98 H 98 H Respiratory Rate Blood Pressure 94/52 Blood Pressure 94/52 [Left] O2 Sat by Pulse 99 98 Oximetry 08/07/17 08/07/17 08/07/17 07:22 07:27 07:32 Temperature Pulse Rate 90 93 H 96 H Respiratory Rate Blood Pressure Blood Pressure [Left] O2 Sat by Pulse 97 96 98 Oximetry 08/07/17 08/07/17 08/07/17 07:37 07:42 07:47 Temperature Pulse Rate 96 H 107 H 93 H Respiratory Rate Blood Pressure Blood Pressure [Left] O2 Sat by Pulse 98 99 100 Oximetry 08/07/17 08/07/17 08/07/17 07:52 07:57 08:02 Temperature Pulse Rate 93 H 94 H 80 Respiratory Rate Blood Pressure Blood Pressure [Left] O2 Sat by Pulse 99 100 98 Oximetry 08/07/17 08/07/1708/07/18 08:07 08:12 08:17 Temperature Pulse Rate 88 89 96 H Respiratory Rate Blood Pressure Blood Pressure [Left] O2 Sat by Pulse 100 98 99 Oximetry 08/07/17 08/07/17 08/07/17 08:22 08:27 08:32 Temperature Pulse Rate 78 92 H 83 Respiratory Rate Blood Pressure Blood Pressure [Left] O2 Sat by Pulse 99 98 99 Oximetry 08/07/17 08/07/17 08/07/17 08:37 08:42 08:47 Temperature Pulse Rate 91 H 90 89 Respiratory Rate Blood Pressure Blood Pressure [Left] O2 Sat by Pulse 99 99 99 Oximetry 08/07/17 08/07/17 08/07/17 08:52 08:53 08:57 Temperature Pulse Rate 81 87 92 H Respiratory Rate Blood Pressure Blood Pressure [Left] O2 Sat by Pulse 100 92 98 Oximetry 08/07/17 08/07/17 08/07/17 09:02 09:04 09:07 Temperature Pulse Rate 79 78 92 H Respiratory Rate Blood Pressure Blood Pressure [Left] O2 Sat by Pulse 99 94 98 Oximetry 08/07/17 08/07/17 08/07/17 09:12 09:17 09:22 Temperature Pulse Rate 80 73 83 Respiratory Rate Blood Pressure Blood Pressure [Left] O2 Sat by Pulse 99 100 100 Oximetry 08/07/17 08/07/17 08/07/17 09:27 09:32 09:37 Temperature Pulse Rate 79 83 88 Respiratory Rate Blood Pressure Blood Pressure [Left] O2 Sat by Pulse 98 99 99 Oximetry 08/07/17 08/07/17 08/07/17 11:59 12:37 12:42 Temperature 97.8 F Pulse Rate 80 80 Respiratory 18 18 Rate Blood Pressure 129/71 Blood Pressure 129/71 [Left] O2 Sat by Pulse 97 Oximetry 08/07/17 08/07/17 08/07/17 12:43 12:48 12:53 Temperature Pulse Rate 80 95 H 75 Respiratory Rate Blood Pressure Blood Pressure [Left] O2 Sat by Pulse 95 96 100 Oximetry 08/07/17 08/07/17 08/07/17 12:58 13:03 13:08 Temperature Pulse Rate 84 101 H 79 Respiratory Rate Blood Pressure Blood Pressure [Left] O2 Sat by Pulse 100 99 100 Oximetry 08/07/17 08/07/17 08/07/17 14:17 14:22 14:27 Temperature Pulse Rate 38 L 81 89 Respiratory Rate Blood Pressure 119/71 Blood Pressure [Left] O2 Sat by Pulse 100 99 98 Oximetry 08/07/17 08/07/17 08/07/17 14:28 14:32 14:33 Temperature Pulse Rate 91 H 102 H 78 Respiratory Rate Blood Pressure 128/72 Blood Pressure [Left] O2 Sat by Pulse 88 100 Oximetry 08/07/17 08/07/17 08/07/17 14:37 14:38 14:42 Temperature Pulse Rate 82 92 H 88 Respiratory Rate Blood Pressure 106/61 Blood Pressure [Left] O2 Sat by Pulse 99 100 Oximetry 08/07/17 08/07/17 08/07/17 14:45 14:47 14:50 Temperature Pulse Rate 90 72 78 Respiratory Rate Blood Pressure 124/61 121/62 Blood Pressure [Left] O2 Sat by Pulse 100 Oximetry 08/07/17 08/07/17 08/07/17 14:52 14:53 14:57 Temperature Pulse Rate 74 90 85 Respiratory Rate Blood Pressure 112/58 Blood Pressure [Left] O2 Sat by Pulse 100 100 Oximetry 08/07/17 08/07/17 08/07/17 14:59 15:02 15:05 Temperature Pulse Rate 72 74 81 Respiratory Rate Blood Pressure 115/60 134/68 Blood Pressure [Left] O2 Sat by Pulse 100 Oximetry - Exam Breasts: deferred Lungs: Normal air movement Abdomen: Present: normal appearance Vulva: both: normal FHR: category 2 FHR comments: ISE placed after verbal consent obtained overall reassuring Uterine Contraction Monitor Mode: Internal Cervical Dilatation: 2.5 Cervical Effacement Percentage: 50 station: -1 Uterine Contraction Pattern: Regular - Labs Labs: Laboratory Results - last 24 hr 08/06/17 08/07/17 Unknown 12:25 WBC 9.8 RBC 4.29 Hgb 12.6 Hct 38.9 MCV 91 MCH 29 MCHC 32 RDW 13.9 Plt Count 186 Urine Opiates Screen Presumptive negative Urine Methadone Screen Presumptive negative Ur Barbiturates Screen Presumptive negative Ur Phencyclidine Scrn Presumptive negative Ur Amphetamines Screen Presumptive negative U Benzodiazepines Scrn Presumptive negative Urine Cocaine Screen Presumptive negative U Marijuana (THC) Screen Presumptive negative Drugs of Abuse Note Disclamer
[2017-08-07] MEDS ORDERED: fentaNYL-BUPIV 2 MCG/ML-0.125% 200 MCG/100 ML BAG EPIDURAL SCH (16:00)
[2017-08-07] MEDS ORDERED: NACL 0.9% 1000 ML 1,000 ML ONE (17:29)
[2017-08-07] MEDS ORDERED: NACL 0.9% 1000 ML VG ONE (17:43)
--- NOTE | 2017-08-07 19:14 | Procedure Note ---
OB Delivery Note - Delivery Date of Delivery: 08/07/17 Surgeon: ANG JOHNSON Estimated blood loss: 300cc - Vaginal Delivery presentation: vertex Delivery position: OA Intrapartum events: no care Delivery induction: cervidil Delivery augmentation: rupture of membranes, pitocin (AROM) Delivery monitor: external FHT, external uterine, internal FHT, internal uterine Route of delivery: Delivery placenta: spontaneous (intact) Delivery cord: nuchal cord (x1, release over shoulders with delivery) Episiotomy: none Delivery laceration: none Anesthesia: intravenous, epidural - Infant A at 1 minute: 8 at 5 minutes: 9 Infant Gender: Male (8#6oz)
[2017-08-07] MEDS: DERMOPLAST TP SCH (20:50)
[2017-08-07] MEDS ORDERED: DULCOLAX PR PRN (22:23)
[2017-08-07] MEDS ORDERED: LANSINOH TP PRN (22:23)
[2017-08-07] MEDS ORDERED: PHENERGAN PR PRN (22:23)
[2017-08-07] MEDS ORDERED: PITOCin/NS 20 UNIT/1000ML DRIP 20 UNITS/1,000 ML BAG IV SCH (22:23)
[2017-08-07] MEDS ORDERED: BENADRYL PO PRN (22:23)
[2017-08-07] MEDS ORDERED: ZOFRAN IV PRN (22:23)
[2017-08-07] MEDS ORDERED: PHENERGAN PO PRN (22:23)
[2017-08-07] MEDS ORDERED: HEMABATE IM PRN (22:23)
[2017-08-07] MEDS ORDERED: METHERGINE IM PRN (22:23)
[2017-08-07] MEDS ORDERED: CYTOTEC PR PRN (22:23)
[2017-08-07] MEDS ORDERED: SODIUM CHLORIDE FLUSH SYRINGE 10 ML IV NR (22:23)
[2017-08-07] MEDS ORDERED: TYLENOL PO PRN (22:23)
[2017-08-07] MEDS ORDERED: MILK OF MAGNESIA PO PRN (22:23)
[2017-08-07] MEDS ORDERED: ANUCORT-HC PR PRN (22:23)
[2017-08-08] MEDS: MOTRIN PO SCH ×4 (00:27→18:30)
[2017-08-08] MEDS ORDERED: BOOSTRIX IM ONE (06:00)
[2017-08-08] MEDS: TUCKS PAD TP SCH ×3 (06:27→14:00)
[2017-08-08 07:43] LABS: Hematocrit 30.1 % (30.3-42.9); Hemoglobin 9.8 gm/dl (10.1-14.3)
--- NOTE | 2017-08-08 09:58 | Progress Note ---
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 (2) No care in current Current Visit: Yes Status: Acute Qualifiers: Trimester: third trimester Qualified Code(s): O09.33 - Supervision of with insufficient care, third trimester (3) History of macrosomia in in prior , currently Current Visit: Yes Status: Acute Subjective - Subjective Date of service: 08/08/17 Principal diagnosis: PPD#1 , No pnc Interval history: Resting in bed, minimal bleeding Patient reports: appetite normal, voiding normally, pain well controlled, ambulating normally Objective - Vital Signs Latest vital signs: Vital Signs Temp Pulse Resp BP BP Pulse Ox 08/08/17 08:10 98.4 F 80 18 95/58 08/08/17 05:45 98.5 F 83 16 100/61 08/08/17 01:04 99 F 101 H 20 110/64 08/07/17 21:05 99.2 F 107 H 20 131/75 08/07/17 20:39 104 H 99 08/07/17 20:19 110 H 116/68 08/07/17 20:05 98 H 131/73 08/07/17 19:49 94 H 136/81 08/07/17 19:34 93 H 138/77 08/07/17 19:19 108 H 139/78 08/07/17 19:04 101 H 142/71 08/07/17 19:02 118 H 126/93 08/07/17 19:00 99.5 F 18 08/07/17 18:19 101 H 100 08/07/17 18:14 89 100 08/07/17 18:09 99 H 100 08/07/17 18:04 93 H 100 08/07/17 17:59 82 100 08/07/17 17:57 82 125/73 08/07/17 17:54 97 08/07/17 17:45 81 100 08/07/17 17:40 85 100 08/07/17 17:35 75 100 08/07/17 17:33 87 119/67 08/07/17 17:30 96 H 0 L 08/07/17 15:47 88 99 03/24/18 15:43 80 126/76 03/24/18 15:42 72 100 03/24/18 15:38 72 123/73 03/24/18 15:37 74 100 03/24/18 15:33 176 H 113/73 03/24/18 15:32 78 99 03/24/18 15:30 72 118/65 03/24/18 15:27 72 100 03/24/18 15:25 82 113/70 03/24/18 15:22 82 99 03/24/18 15:19 78 126/59 03/24/18 15:17 69 100 03/24/18 15:13 85 107/68 03/24/18 15:12 70 100 03/24/18 15:10 79 109/71 03/24/18 15:07 84 100 /24/18 15:05 81 134/68 03/24/18 15:02 74 100 /24/18 14:59 72 115/60 03/24/18 14:57 85 100 /24/18 14:53 90 112/58 /24/18 14:52 74 100 03/24/18 14:50 78 121/62 03/24/18 14:47 72 100 03/24/18 14:45 90 124/61 03/24/18 14:42 88 100 /24/18 14:38 92 H 106/61 /24/18 14:37 82 99 /24/18 14:33 78 128/72 03/24/18 14:32 102 H 100 /24/18 14:28 91 H 88 24/18 14:27 89 119/71 98 /24/18 14:22 81 99 /24/18 14:17 38 L 100 /24/18 13:08 79 100 03/24/18 13:03 101 H 99 03/24/18 12:58 84 100 03/24/18 12:53 75 100 /24/18 12:48 95 H 96 /24/18 12:43 80 95 /24/18 12:42 80 129/71 /24/18 12:37 97.8 F 80 18 129/71 97 03/24/18 11:59 18 Intake and Output 08/07/18 08/08/18 18 22:59 06:59 14:59 Intake Total 971.583 100 120 Output Total 600 20 1 Balance 371.583 80 119 Intake: IV 611.583 Normosol-R pH 7.4 1,000 556.25 ml @ 125 mls/hr IV DIRECT LUCIE Rx#:[id number] PITOCin/NS 30 UNIT/500ML 55.333 30 units In 500 ml @ 4 MILLIUNITS/MIN 4 mls/hr IV TITR LUCIE Rx#:[id number] Oral 120 120 Intake, Free Water 240 100 Output: Urine 600 20 1 Indwelling Catheter 200 Void 400 20 1 Other: Total, Intake Amount 120 120 Total, Output Amount 400 20 1 Estimated Blood Loss 300 - Exam Breasts: Present: normal. Absent: swelling, engorged Lungs: Present: Normal air movement Abdomen: Present: normal appearance, soft Uterus: Present: fundal height below umbilicus Extremities: Present: normal. Absent: tenderness, edema - Labs Labs: Abnormal lab results 08/08/17 Range/Units 07:16 Hgb 9.8 L (10.1-14.3) gm/dl Hct 30.1 L D (30.3-42.9) %
[2017-08-08] MEDS ORDERED: Fluarix Quad 2017-2018(36 MOS+ IM ONE (12:00)
[2017-08-08] MEDS: DERMOPLAST TP SCH (18:21)
--- NOTE | 2017-08-09 07:48 | Discharge Summary ---
Providers - Providers Date of Admission: 08/05/17 22:21 Date of discharge: 08/09/17 (pt desires d/c today) Attending physician: ANG JOHNSON 08/07/17 22:23 Consult to [employer] [CONS] Routine Reason For Exam: assistance with , SNS Primary care physician: SHUBHAM PENNINGTON Hospitalization Reason for admission: active labor Delivery: Episiotomy: none Laceration: none Incision: normal Other procedures: none complications: none Discharge diagnosis: IUP at term delivered baby: male Hospital course: uncomplicated vaginal delivery limited PNC Pt w/o complaint VSS FF below umb Lochia small perineum intact H&H stable No s/ sx of anemia Doing well s/p vag delivery P: d/c today with instructions. RTO 1 week circ and 4 weeks PP care. RX provided. Condition at discharge: Good Disposition: DC-01 TO HOME OR SELFCARE - Discharge Diagnoses (1) Normal spontaneous vaginal delivery Status: Acute Comment: RTO 4 weeks for PP care Plan - Discharge Medications Prescriptions: Lidocain2.5%/Prilocai2.5% [Emla] 5 gm TP ONCE #1 tube - Provider Discharge Summary Activity: routine, no sex for 6 weeks, no heavy lifting 4 weeks, no strenuous exercise Diet: routine Instructions: routine Additional instructions: [] Smoking cessation referral if applicable(refer to patient education folder for contact #) [] Refer to [facility] Booklet Call your doctor immediately for: * Fever > 100.5 * Heavy vaginal bleeding ( >1 pad per hour) * Severe persistent headache * Shortness of breath * Reddened, hot, painful area to leg or breast * Drainage or odor from incision. * Keep incision clean and dry at all times and follow doctor's instructions regarding bathing/showering - Follow up plan Follow up: SHUBHAM PENNINGTON MD [Primary Care Provider] - 7 Days PHOENIX GONZALEZ CNM [Advanced Practice Nurse] - 7 Days (Congratulations! Please call [phone] to schedule your visit in 4 weeks and your son's circumcision in 1 week. Bring the EMLA cream with you to his visit. Do NOT use at home. Take medications as prescribed. Call with concerns. [facility]: [address]; [place] [id number])
[2017-08-09] MEDS: MOTRIN PO SCH ×2 (12:29)
[2017-08-09 17:35] VITALS: BP 107/66
== END 2017-08-09 19:00 | disposition home or self-care (01) | DRG 775 ==
LOC: TRG 16:41 → LD 22:21 → OB 08-07 22:23
PROVIDERS: ADMIT Obstetrics & Gynecology; ATTEND Obstetrics & Gynecology
PROC: 10E0XZZ Delivery of Products of Conception, External Approach (ICD-10-PCS; principal; 2017-08-07)
PROC: 10907ZC Drainage of Amniotic Fluid, Therapeutic from Products of Conception, Via Natural or Artificial Opening (ICD-10-PCS; 2017-08-07)
PROC: 3E0P7VZ Introduction of Hormone into Female Reproductive, Via Natural or Artificial Opening (ICD-10-PCS; 2017-08-07)
PROC: 3E0S3BZ Introduction of Anesthetic Agent into Epidural Space, Percutaneous Approach (ICD-10-PCS; 2017-08-07)
PROC: 00HU33Z Insertion of Infusion Device into Spinal Canal, Percutaneous Approach (ICD-10-PCS; 2017-08-07)
DX: O40.3XX0 Polyhydramnios, third trimester, not applicable or unspecified (principal); O48.0 Post-term pregnancy; O69.81X0 Labor and delivery complicated by cord around neck, without compression, not applicable or unspecified; Z3A.41 41 weeks gestation of pregnancy; Z37.0 Single live birth
CPT/HCPCS: 36415; 59200; 76815; 76819; 80307; 85014; 85018; 85027; 85660; 86592; 86706; 86762; 86803; 86850; 86900; 86901; 87806; 90686; A6250; J0290; J2590; J3010; J7030